=== PATIENT | female | born 1960 | race Caucasian/White ===

== ENCOUNTER 2018-03-02 10:15 | Emergency (ER) | payer BC ==
--- NOTE | 2018-03-02 10:39 | EDPHY ---
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 Patient states that she woke this morning had a sensation she might have a urine infection. No recent urgency or frequency. No fevers or chills. She has had some nausea, no vomiting. No history of similar pain in the past. She is currently on hormone replacement. Denies any abdominal surgeries or medical problems. Pain right now is about an 8/10. She did get pain medication from EMS. ROS: 10 point Review of Systems is negative except as noted in the HPI. PMH: Denies Social History: No smoking, no alcohol, no recreational drug use Family History: non-contributory Physical Exam: Gen: Awake, Alert, No Distress HEENT: Nose: no rhinorrhea Eyes: PERRLA, EOMI Mouth: Moist mucosa Neck: Supple, no JVD Chest: nontender, lungs clear to auscultation Heart: S1, S2 normal, no murmur Abd: Soft, non-tender, no guarding Back: no CVA tenderness, no midline tenderness Ext: no edema, non-tender Skin: no rash Neuro: CN II-XII intact, Sensation grossly intact, Strength 5/5 in bilateral upper and lower extremities - Personal History Current Tetanus/Diphtheria Vaccine: Yes Current Tetanus Diphtheria and Acellular Pertussis (TDAP): Yes - Medical/Surgical History Hx Asthma: No Hx Chronic Respiratory Disease: No Hx Diabetes: No Hx Cardiac Disease: No Hx Renal Disease: No Hx Cirrhosis: No Hx Alcoholism: No Hx HIV/AIDS: No Hx Splenectomy or Spleen Trauma: No Other PMH: Denies - Social History Smoking Status: Never smoked Constitutional: Initial Vital Signs Temperature (C) 36.6 C 03/02/18 10:15 Heart Rate 68 03/02/18 10:15 Respiratory Rate 16 03/02/18 10:15 Blood Pressure 138/86 H 03/02/18 10:15 O2 Sat (%) 95 03/02/18 10:15 O2 Delivery Mode Room Air Allergies/Adverse Reactions: No Known Allergies Allergy (Unverified 03/02/18 10:26) Home Medications: Medication Instructions Recorded Hormone Replacement 07/08/18 Hydrocodone/Acetaminophen 1 - 2 each PO Q4-6PRN PRN #10 03/02/18 [Hydrocodon-Acetaminophen 5-325] tablet Medical Decision Making - Diagnostics Imaging Results: Imaging Impressions Abdomen/Pelvis Ultrasound 03/02/18 11:18 Impression: 1. Minimal right hydronephrosis, a right ureteral jet is not identified although the bladder is nearly empty and therefore difficult to evaluate. 2. Echogenic focus in the right kidney could reflect a small stone. Results called and discussed with Harpal Woods MD on 03/02/2018 at 12:33. Imaging: Discussed imaging studies w/ quad stayer Radiologist ED Course/Re-evaluation: 57-year-old woman with right flank pain. She has hematuria. There is moderate hydronephrosis on hers ultrasound. Pain is been controlled with Toradol. Will discharge with urine strainer, follow up with Urology. - Data Points Laboratory Results: Laboratory Results 03/02/18 10:15 03/02/18 10:15 03/02/18 03/02/18 03/02/18 13:08 10:15 10:15 WBC 8.28 10^3/uL 10^3/uL (3.80-9.50) RBC 4.67 10^6/uL 10^6/uL (4.18-5.33) Hgb 13.6 g/dL g/dL (12.6-16.3) Hct 40.0 % % (38.0-47.0) MCV 85.7 fL fL (81.5-99.8) MCH 29.1 pg pg (27.9-34.1) MCHC 34.0 g/dL g/dL (32.4-36.7) RDW 12.2 % % (11.5-15.2) Plt Count 232 10^3/uL 10^3/uL (150-400) MPV 9.5 fL fL (8.7-11.7) Neut % (Auto) 56.8 % % (39.3-74.2) Lymph % (Auto) 33.0 % % (15.0-45.0) Randall % (Auto) 8.7 % % (4.5-13.0) Eos % (Auto) 0.8 % % (0.6-7.6) Baso % (Auto) 0.5 % % (0.3-1.7) Nucleat RBC Rel Count 0.0 % % (0.0-0.2) Absolute Neuts (auto) 4.70 10^3/uL 10^3/uL (1.70-6.50) Absolute Lymphs (auto) 2.73 10^3/uL 10^3/uL (1.00-3.00) Absolute Monos (auto) 0.72 10^3/uL 10^3/uL (0.30-0.80) Absolute Eos (auto) 0.07 10^3/uL 10^3/uL (0.03-0.40) Absolute Basos (auto) 0.04 10^3/uL 10^3/uL (0.02-0.10) Absolute Nucleated RBC 0.00 10^3/uL 10^3/uL (0-0.01) Immature Gran % 0.2 % % (0.0-1.1) Immature Gran # 0.02 10^3/uL 10^3/uL (0.00-0.10) Sodium 139 mEq/L mEq/L (135-145) Potassium 3.8 mEq/L mEq/L (3.3-5.0) Chloride 111 mEq/L H mEq/L (97-110) Carbon Dioxide 23 mEq/l mEq/l (22-31) Anion Gap 5 mEq/L L mEq/L (8-16) BUN 12 mg/dL mg/dL (7-23) Creatinine 1.0 mg/dL mg/dL (0.6-1.0) Estimated GFR 57 Glucose 116 mg/dL H mg/dL (70-100) Calcium 9.5 mg/dL mg/dL (8.5-10.4) Urine Color YELLOW Urine Appearance MODERATELY TURBID Urine pH 5.0 (5.0-7.5) Ur Specific [place] 1.025 (1.002-1.030) Urine Protein NEGATIVE (NEGATIVE) Urine Ketones NEGATIVE (NEGATIVE) Urine Blood 1+ H (NEGATIVE) Urine Nitrate NEGATIVE (NEGATIVE) Urine Bilirubin NEGATIVE (NEGATIVE) Urine Urobilinogen NEGATIVE EU EU (0.2-1.0) Ur Leukocyte Esterase NEGATIVE (NEGATIVE) Urine RBC Pending Urine WBC Pending Ur Epithelial Cells Pending Urine Glucose NEGATIVE (NEGATIVE) Medications Given: Discontinued Medications Hydromorphone HCl (Dilaudid) 0.5 mg IVP EDNOW ONE Stop: 03/02/18 11:08 Last Admin: 03/02/18 11:16 Dose: 0.5 mg Sodium Chloride (Ns) 1,000 mls @ 0 mls/hr IV ONCE ONE; Wide Open PRN Reason: Protocol Stop: 03/02/18 11:14 Last Admin: 03/02/18 11:16 Dose: 1,000 mls Sodium Chloride (Ns) 1,000 mls @ 0 mls/hr IV ONCE ONE; Wide Open PRN Reason: Protocol Stop: 03/02/18 12:47 Last Admin: 03/02/18 13:01 Dose: 1,000 mls Ketorolac Tromethamine (Toradol) 15 mg IVP EDNOW ONE Stop: 03/02/18 12:47 Last Admin: 03/02/18 13:02 Dose: 15 mg Metoclopramide HCl (Reglan Injection) 10 mg IVP EDNOW ONE Stop: 03/02/18 11:13 Last Admin: 03/02/18 11:15 Dose: 10 mg Departure - Departure Disposition: Home, Routine, Self-Care Clinical Impression: Renal colic on right side Condition: Good Instructions: Kidney Stones (ED) Additional Instructions: Strain your urine and collect the stone and take it to your urology appointment. Follow up with urologist in 4-5 days. You may take ibuprofen, 600 mg 3 times a day for pain. If you have breakthrough pain you may take hydrocodone with acetaminophen 1-2 tablets every 4-6 hours. Return to the emergency department for worsening pain, uncontrolled nausea vomiting, fevers, or any other concerns. Referrals: Nadeem Pulido MD [Medical Doctor] - As per Instructions Prescriptions: Hydrocodone/Acetaminophen [Hydrocodon-Acetaminophen 5-325] 1 - 2 each PO Q4- 6PRN PRN #10 tablet PRN Reason: Pain, Severe
[2018-03-02 10:53] LABS: PLATELET COUNT 232 10^3/uL (150-400)
[2018-03-02] MEDS ORDERED: HYDROmorphONE/DILAUDID 1 MG/ML INJ ONE (11:06)
[2018-03-02] MEDS ORDERED: HYDROmorphONE/DILAUDID 1 MG/ML INJ IVP ONE (11:07)
[2018-03-02] MEDS ORDERED: METOCLOPRAMIDE 10 MG/2 ML VIAL IVP ONE (11:12)
[2018-03-02] MEDS ORDERED: NS 1,000 ML IV ONE ×2 (11:13→12:46)
[2018-03-02] MEDS ORDERED: ONDANSETRON 4 MG/2 ML VIAL ONE (11:13)
[2018-03-02] MEDS ORDERED: KETOROLAC 15 MG/1 ML SDV IVP ONE (12:46)
[2018-03-02 13:49] VITALS: BP 118/87
== END 2018-03-02 13:49 | disposition home or self-care (01) ==
LOC: EDUNIT#
DX: N23 Unspecified renal colic (principal); E86.9 Volume depletion, unspecified
CPT/HCPCS: 96374; J1170; J1885; J2405; J2765